=== PATIENT | male | born 1970 | race Two or more races ===

== ENCOUNTER 2021-01-30 21:51 | Emergency (ER) | payer OTHER ==
[~2021-01-30] VITALS: Ht 185.4 cm; Wt 113.4 kg
== END 2021-01-31 15:43 | disposition home or self-care (01) ==
LOC: ER 21:51
DX: I82.442 Acute embolism and thrombosis of left tibial vein (principal); I82.462 Acute embolism and thrombosis of left calf muscular vein; I87.2 Venous insufficiency (chronic) (peripheral); R60.0 Localized edema; R09.02 Hypoxemia

== ENCOUNTER 2021-03-19 07:56 | Emergency (ER) | payer OTHER ==
[~2021-03-19] VITALS: Ht 185.4 cm; Wt 122.5 kg
== END 2021-03-19 09:42 | disposition home or self-care (01) ==
LOC: ER 07:56 → EDBD 08:01 → ER 08:01
DX: S93.492A Sprain of other ligament of left ankle, initial encounter (principal); M79.672 Pain in left foot; X50.0XXA Overexertion from strenuous movement or load, initial encounter; Y93.01 Activity, walking, marching and hiking; Y92.89 Other specified places as the place of occurrence of the external cause; Y99.8 Other external cause status